=== PATIENT | female | born 1960 | race Caucasian/White ===

== ENCOUNTER → 2023-10-26 18:48 | Outpatient (REF) | payer BC, SELFPAY | LOC: WDC 18:48 | PROVIDERS: ATTENDING PHYSICIAN Nurse Practitioner | DX: Z12.31 Encounter for screening mammogram for malignant neoplasm of breast (principal) | CPT/HCPCS: 77063; 77067 ==

== ENCOUNTER → 2025-01-01 18:47 | Outpatient (REF) | payer BC, SELFPAY | LOC: RAD 18:47 | PROVIDERS: ATTENDING PHYSICIAN Nurse Practitioner | DX: M25.561 Pain in right knee (principal) | CPT/HCPCS: 73564 ==

== ENCOUNTER → 2025-01-08 19:22 | Outpatient (REF) | payer BC, SELFPAY | LOC: WDC 19:22 | PROVIDERS: ATTENDING PHYSICIAN Nurse Practitioner | DX: Z12.31 Encounter for screening mammogram for malignant neoplasm of breast (principal) | CPT/HCPCS: 77063; 77067 ==

== ENCOUNTER → 2025-09-03 11:19 | Outpatient (REF) | payer OTHER, SELFPAY | LOC: RAD 11:19 | PROVIDERS: ATTENDING PHYSICIAN Physician Assistant | DX: M25.512 Pain in left shoulder (principal); M79.602 Pain in left arm | CPT/HCPCS: 73030; 73060 ==